=== PATIENT | female | born 1935 | race Caucasian/White ===

== ENCOUNTER 2022-03-22 01:01 | Inpatient (IN) | payer MEDICARE, MEDICAID ==
[~2022-03-22] VITALS: Ht 154.9 cm; Wt 52.2 kg
--- NOTE | 2022-03-22 01:08 | NUR ---
Pt to ER via EMS from SNF w/ c/o low H&H. Per facility, Hemoglobin resulted at 7.2. Pt is AOx2 w/ history of dementia and anemia. Pt has mild skin pallor. Respirations even and unlabored. No signs of acute distress.
[2022-03-22 01:09] VITALS: BP_SYST 132
--- NOTE | 2022-03-22 02:45 | NUR ---
Placed in room 03 . Placed on chimney builder, blood pressure machine and pulse oximeter. To gown for exam. Side rails up. Report given to MYAH BRENNER
[2022-03-22 03:12] LABS: BASOPHILS % (AUTO) 0.7 % (0.0-2.0); EOSINOPHILS # (AUTO) 0.1 K/uL (0.0-0.4); EOSINOPHILS % (AUTO) 2.4 % (0.0-4.0); LYMPHOCYTES # (AUTO) 2.2 K/uL (1.0-5.5); LYMPHOCYTES % (AUTO) 35.6 % (20.5-51.5); MEAN CORPUSCULAR HEMOGLOBIN 24 pg (27-31); MEAN CORPUSCULAR HGB CONC 33 % (32-36); MEAN CORPUSCULAR VOLUME 74 fL (79.0-98.0); MONOCYTES # (AUTO) 0.6 K/uL (0.0-1.0); MONOCYTES % (AUTO) 10.4 % (1.7-9.3); NEUTROPHILS # (AUTO) 3.1 K/uL (1.8-7.7); NEUTROPHILS % (AUTO) 50.9 % (40.0-70.0); PLATELET COUNT (AUTO) 167 K/uL (130-430); RED BLOOD CELL COUNT(AUTO) 2.65 MIL/uL (4.2-6.2); RED CELL DISTRIBUTION WIDTH 17.3 % (9.0-15.0); WHITE BLOOD COUNT (AUTO) 6.1 K/uL (4.8-10.8)
[2022-03-22 03:16] LABS: ANION GAP 7 (5-15); CALCIUM 9.2 mg/dL (8.4-11.0); CHLORIDE 98 mmol/L (98-107); CREATININE 0.88 mg/dL (0.55-1.30); GLUCOSE 110 mg/dL (70-99); POTASSIUM 4.2 mmol/L (3.5-5.1); SODIUM SERUM 133 mmol/L (136-145); UREA NITROGEN, BLOOD 24 mg/dL (8-21)
[2022-03-22 03:21] LABS: HEMATOCRIT 19.5 % (36-48); HEMOGLOBIN 6.4 g/dL (12.0-16.0)
[2022-03-22 03:24] LABS: ALANINE AMINOTRANSFERASE 8 U/L (12-78); ALBUMIN 3.5 g/dL (3.4-4.8); ASPARTATE AMINOTRANSFERASE 16 U/L (10-37); LIPASE 144 U/L (73-393); TOTAL BILIRUBIN 0.2 mg/dL (0.0-1.0)
--- NOTE | 2022-03-22 03:53 | NUR ---
COVID NASAL SWAB COLLECTED AND SENT TO LAB
--- NOTE | 2022-03-22 05:01 | NUR ---
QUICK CATH UA COLLECTED AND SENT TO LAB.
--- NOTE | 2022-03-22 05:05 | NUR ---
PT RESTING COMFORTABLY. VSS CONTINUED MONITORING
[2022-03-22 05:10] LABS: BILIRUBIN,URINE NEGATIVE (NEGATIVE); BLOOD, URINE NEGATIVE (NEGATIVE); CLARITY/URINE CLEAR (CLEAR); COLOR,URINE YELLOW (YELLOW); GLUCOSE,URINE NEGATIVE (NEGATIVE); KETONES,URINE NEGATIVE (NEGATIVE); LEUKOCYTE ESTERASE ,URINE NEGATIVE (NEGATIVE); NITRITE, URINE NEGATIVE (NEGATIVE); PH,URINE 5.5 (5.0-8.0); PROTEIN URINE NEGATIVE (NEGATIVE); UROBILINOGEN,URINE 0.2 (0.2-1.0)
[2022-03-22] MEDS ORDERED: ACET-2634 PO (07:24)
[2022-03-22] MEDS ORDERED: ASCO500T20 PO (07:26)
[2022-03-22] MEDS ORDERED: ASA81 PO (07:28)
[2022-03-22] MEDS ORDERED: CAPT25TA3 PO (07:29)
[2022-03-22] MEDS ORDERED: DOCU-144 PO (07:30)
[2022-03-22] MEDS ORDERED: GABA-529 PO (07:31)
[2022-03-22] MEDS ORDERED: SIMV10TA2 PO (07:33)
[2022-03-22] MEDS ORDERED: SUCR1TAB78 PO (07:34)
--- NOTE | 2022-03-22 08:27 | NUR ---
BT CONSENT SECURED- VERBAL FROM RAMONITA SCHUSTER (DAUGHTER)
--- NOTE | 2022-03-22 08:41 | NUR ---
Admit bed requested Patient will be admitted to care of . Admitted to MEDSURG unit. Diagnosis SYMPTOMATIC ANEMIA Inpatient (Yes or No) YES Observation (Yes or No) NO Orientation concerns or request close to nursing station (Yes or No) NO Covid Status NEG On vent or bipap NO Isolation requirements NO Needs a sitter NO From Home (Yes or if No enter name of facility) SNF Requires Dialysis (Yes or No) NO Med Rec Completed (Yes of No) YES
--- NOTE | 2022-03-22 09:58 | NUR ---
MRSA swab done and sent to lab.
--- NOTE | 2022-03-22 10:05 | NUR ---
Patient resting comfortably eating breakfast tray. Nad noted at this time.
--- NOTE | 2022-03-22 10:50 | NUR ---
ADMISSION NOTE Received patient from ER via gurney. Patient admitted with diagnosis of Symptomatic Anemia. Patient is awake, alert, oriented X 3. Patient oriented to hospital room, call light, toileting, pain management and safety-teach back done. Patient informed that their room number is 132 B. Personal belongings checked and Belongings List documented. Call light within reach.
--- NOTE | 2022-03-22 10:50 | NUR ---
Patient will be admitted to care of DR CROUCH. Admitted to MEDSURG unit. Will go to room 132B. Belongings list completed. Complete and up to date summary report printed. SBAR report to be given at bedside with opportunity for questions.
[2022-03-22 12:00] VITALS: BP_SYST 131
[2022-03-22] MEDS ORDERED: captopriL 25 MG TABLET PO SCH (14:30)
[2022-03-22] MEDS ORDERED: ACETAMINOPHEN 500 MG TABLET PO PRN (14:30)
[2022-03-22 14:34] VITALS: BP_SYST 130
--- NOTE | 2022-03-22 15:21 | NUR ---
BT INITIATION: Consent signed per daughter agreeing to administration of blood. Blood has been type and crossmatched. Blood sent from blood bank. Information on unit of blood checked against patient wristband at bedside by two nurses. All information matches. Patient or responsible democrat informed of potential complications associated with blood transfusion. Informed of possible transfusion reaction symptoms. Aware of need to notify nurse at once of itching, shortness of breath, flushing, feeling of impending doom, or other symptoms not previously present. Vital signs taken within 5 minutes prior to initiation of transfusion. RN will remain with patient for first 15 minutes of transfusion at which time vital signs will be re-assessed.
[2022-03-22 16:00] VITALS: BP_SYST 115
--- NOTE | 2022-03-22 18:00 | NUR ---
1st unit done: Patient resting in bed. No s/s of acute distress noted. No sob and itchiness noted. Stable VS. Denies any discomfort/
--- NOTE | 2022-03-22 18:31 | NUR ---
BT INITIATION (2nd unit): Consent signed per daughter agreeing to administration of blood. Blood has been type and crossmatched. Blood sent from blood bank. Information on unit of blood checked against patient wristband at bedside by two nurses. All information matches. Patient or responsible libertarian informed of potential complications associated with blood transfusion. Informed of possible transfusion reaction symptoms. Aware of need to notify nurse at once of itching, shortness of breath, flushing, feeling of impending doom, or other symptoms not previously present. Vital signs taken within 5 minutes prior to initiation of transfusion. RN will remain with patient for first 15 minutes of transfusion at which time vital signs will be re-assessed.
--- NOTE | 2022-03-22 19:30 | NUR ---
CLOSING NOTES: PATIENT RESTING IN BED. NO S/S OF ACUTE DISTRESS NOTED. BT STILL ONGOING FOR THE 2ND UNIT. NEEDS MET THROUGHOUT SHIFT. FALL AND SAFETY MEASURES PROVIDED. CALL LIGHT WITHIN REACH.
[2022-03-22 20:00] VITALS: BP_SYST 118
[2022-03-22] MEDS ORDERED: SIMVASTATIN 10 MG TABLET PO SCH (21:00)
[2022-03-22] MEDS: lisinopriL 5 MG TABLET PO SCH (21:00)
[2022-03-22] MEDS: GABAPENTIN 100 MG CAPSULE PO SCH (21:47)
[2022-03-22] MEDS: DOCUSATE SODIUM 100 MG CAPSULE PO SCH (21:47)
[2022-03-23 01:11] VITALS: BP_SYST 122
[2022-03-23 07:14] LABS: BASOPHILS % (AUTO) 0.5 % (0.0-2.0); EOSINOPHILS # (AUTO) 0.1 K/uL (0.0-0.4); EOSINOPHILS % (AUTO) 2.1 % (0.0-4.0); HEMOGLOBIN 9.9 g/dL (12.0-16.0); LYMPHOCYTES # (AUTO) 1.6 K/uL (1.0-5.5); LYMPHOCYTES % (AUTO) 26.1 % (20.5-51.5); MEAN CORPUSCULAR HEMOGLOBIN 25 pg (27-31); MEAN CORPUSCULAR HGB CONC 33 % (32-36); MEAN CORPUSCULAR VOLUME 75 fL (79.0-98.0); MONOCYTES # (AUTO) 0.7 K/uL (0.0-1.0); MONOCYTES % (AUTO) 10.9 % (1.7-9.3); NEUTROPHILS # (AUTO) 3.7 K/uL (1.8-7.7); NEUTROPHILS % (AUTO) 60.4 % (40.0-70.0); PLATELET COUNT (AUTO) 259 K/uL (130-430); RED CELL DISTRIBUTION WIDTH 17.7 % (9.0-15.0); WHITE BLOOD COUNT (AUTO) 6.2 K/uL (4.8-10.8)
[2022-03-23 07:28] LABS: TOTAL IRON BIND. CAPACITY 355 ug/dL (250-450)
[2022-03-23 07:51] LABS: ANION GAP 8 (5-15); CALCIUM 9.8 mg/dL (8.4-11.0); CHLORIDE 101 mmol/L (98-107); GLUCOSE 106 mg/dL (70-99); POTASSIUM 4.2 mmol/L (3.5-5.1); SODIUM SERUM 134 mmol/L (136-145); UREA NITROGEN, BLOOD 22 mg/dL (8-21)
[2022-03-23 08:00] VITALS: BP_SYST 138
--- NOTE | 2022-03-23 08:00 | NUR ---
OPENING NOTES: PATIENT RESTING IN BED. BREATHING EVEN AND NON LABORED TO RA. DENIES ANY DISCOMFORT AT THIS TIME. FALL AND SAFETY REINFORCED. BED LOCKED, ALARM ON AND IN LOWEST POSITION. CALL LIGHT WITHIN REACH
[2022-03-23] MEDS: GABAPENTIN 100 MG CAPSULE PO SCH (09:05)
[2022-03-23] MEDS: DOCUSATE SODIUM 100 MG CAPSULE PO SCH (09:05)
[2022-03-23] MEDS: lisinopriL 5 MG TABLET PO SCH (09:07)
[2022-03-23 12:00] VITALS: BP_SYST 116
--- NOTE | 2022-03-23 13:52 | NUR ---
MAYA CARLOS ARRANGED THE TRANSFER BACK TO [facility] RM 229A TODAY. WAITING FOR TRANSPORTATION INFO.
--- NOTE | 2022-03-23 14:59 | NUR ---
SPOKE TO MYAH DELCID ([facility]) REPORT GIVEN TO MYAH DELCID OF [facility]. Addendum: 03/23/22 at 1829 by Carlos Millan RN SPOKE TO ODIN CARTY, THE DAUGHTER AND INFORMED HER REGARDING THE TRANSFER BACK TO [facility].
[2022-03-23 16:00] VITALS: BP_SYST 124
[2022-03-23 16:50] VITALS: BP_SYST 124
--- NOTE | 2022-03-23 17:00 | NUR ---
MAYA MCNALLY CM CALLED, PT TO BE TRANSPORTED BY [facility]ORT [facility] ([phone]), TRADE [employer] SECRETARY TIME 1999 - 2029. SHOULD THERE BE ANY PROBLEM, PLS CALL AFTER HOURS MAY[facility] EXCHANGE - [phone] CASE MGMT
--- NOTE | 2022-03-23 19:08 | NUR ---
CLOSING NOTES: PATIENT RESTING IN BED. NO S/S OF ACUTE DISTRESS NOTED. NEEDS MET THROUGHOUT SHIFT. FALL AND SAFETY MEASURES PROVIDED. CALL LIGHT WITHIN REACH. FOR TRANSFER BACK TO [facility].
--- NOTE | 2022-03-23 20:18 | NUR ---
DISCHARGE NOTE PT PICKED UP BY [facility] # [id number], IV LINE DISCONTINUED, WRIST BAND REMOVED, PT LEFT WITH HER BELONGINGS, PT LEFT THE UNIT IN STABLE CONDITION.
== END 2022-03-23 20:18 | DRG 812 ==
LOC: SED 01:01 → SMU 07:11
PROVIDERS: ADMIT Specialist; ATTEND Specialist
PROC: 30233N1 Transfusion of Nonautologous Red Blood Cells into Peripheral Vein, Percutaneous Approach (ICD-10-PCS; principal; 2022-03-22)
DX: D64.9 Anemia, unspecified (principal); F03.90 Unspecified dementia, unspecified severity, without behavioral disturbance, psychotic disturbance, mood disturbance, and anxiety; E78.5 Hyperlipidemia, unspecified; Z20.822 Contact with and (suspected) exposure to COVID-19; I10 Essential (primary) hypertension; Z79.82 Long term (current) use of aspirin; Z79.1 Long term (current) use of non-steroidal anti-inflammatories (NSAID)
CPT/HCPCS: 36415; 36430; 71045; 80048; 80053; 81003; 82272; 83540; 83550; 83690; 83880; 84484; 85025; 86886; 86900; 86901; 86920; 87081; 93005; 99285; P9021